=== PATIENT | female | born 2000 | race Caucasian/White ===

== ENCOUNTER 2024-02-13 06:34 | Inpatient (IN) | payer MEDICAID ==
[~2024-02-13] VITALS: Ht 162.6 cm; Wt 47.9 kg
[2024-02-13] MEDS ORDERED: loperamide 2mg capsule PO PRN (08:45)
[2024-02-13] MEDS ORDERED: mag hydrox/Alum hydrox/simeth 30ml oral suspension PO PRN (08:45)
[2024-02-13] MEDS ORDERED: magnesium hydroxide 30ml (MOM) UD suspension PO PRN (08:45)
[2024-02-13] MEDS ORDERED: acetaminophen 325mg tablet PO PRN ×2 (08:45)
[2024-02-13 12:05] VITALS: BP 118/83; PULSE 82; RESP 16; TEMP 97.3; O2SAT 98
[2024-02-13] MEDS ORDERED: HYDR-3927 PO (12:36)
[2024-02-13] MEDS ORDERED: SPIR50TA5 PO (12:36)
[2024-02-13] MEDS ORDERED: METR375C6 PO (12:36)
[2024-02-13] MEDS ORDERED: LAMO100T PO (12:36)
[2024-02-13] MEDS ORDERED: ISOT30CA PO (12:36)
[2024-02-13 15:58] VITALS: RESP 16; O2SAT 98
[2024-02-13] MEDS: hydrOXYzine 25 MG tablet PO SCH (17:00)
[2024-02-13 19:11] VITALS: RESP 16; O2SAT 99
[2024-02-13 19:29] VITALS: BP 116/80; PULSE 80; RESP 16; TEMP 98.2; O2SAT 99
[2024-02-14 07:00] VITALS: RESP 18; O2SAT 98
[2024-02-14] MEDS: lamoTRIgine 100mg tablet PO SCH (07:21)
[2024-02-14] MEDS: spironolactone 50 MG tablet PO SCH (07:21)
[2024-02-14 08:00] VITALS: BP 103/82; PULSE 80; RESP 18; TEMP 97.2; O2SAT 98
[2024-02-14] MEDS ORDERED: diphenhydrAMINE 25mg capsule PO PRN (10:10)
[2024-02-14] MEDS ORDERED: mag hydrox/Alum hydrox/simeth 30ml oral suspension PO PRN (10:10)
[2024-02-14] MEDS ORDERED: ondansetron/PF 4mg/2ml inj IV PRN (10:10)
[2024-02-14] MEDS ORDERED: diphenhydrAMINE 50 mg/ml inj IV PRN (10:10)
[2024-02-14] MEDS ORDERED: magnesium hydroxide 30ml (MOM) UD suspension PO PRN (10:10)
[2024-02-14] MEDS ORDERED: ondansetron 4mg rapidly disintigrating tab PO PRN (10:10)
[2024-02-14 12:36] LABS: APTT 28 SECONDS (22-32); PROTHROMBIN TIME 10.5 SECONDS (9.0-12.0)
[2024-02-14 12:38] LABS: CHOL/HDL RATIO 2.6 (0.00-4.99); CHOLESTEROL 176 MG/DL (0-200); HDL CHOLESTEROL 68 MG/DL (35-60); LDL CHOLESTEROL 87 MG/DL (50-100); TRIGLYCERIDES 142 MG/DL (20-135)
[2024-02-14 12:46] LABS: MAGNESIUM 2.3 MG/DL (1.5-2.4); PHOSPHORUS 5.1 MG/DL (2.3-4.5); PRO BRAIN NATRIURETIC PEPTIDE < 30 PG/ML (0-125)
[2024-02-14] MEDS: buPROPion SR 150mg tablet PO SCH (16:25)
[2024-02-14 19:00] VITALS: RESP 14; O2SAT 100
[2024-02-14 20:00] VITALS: BP 124/79; PULSE 97; RESP 14; TEMP 98.6; O2SAT 100
[2024-02-14] MEDS ORDERED: buPROPion SR 150mg tablet PO SCH (20:00)
[2024-02-14] MEDS: temazepam 15mg capsule PO PRN (21:01)
[2024-02-14] MEDS: docusate sod 100mg capsule PO SCH (21:02)
[2024-02-15 07:00] VITALS: RESP 16; O2SAT 98
[2024-02-15 08:00] VITALS: BP 110/87; PULSE 97; RESP 16; TEMP 98.3; O2SAT 98
[2024-02-15 15:17] LABS: BASOPHILS % (AUTO) 0.4 % (0-1); EOSINOPHILS # (AUTO) 0.3 X10'3 (0-0.9); EOSINOPHILS % (AUTO) 3.8 % (0-6); HEMATOCRIT 42.1 % (35.0-45.0); HEMOGLOBIN 14.5 g/dl (12.0-16.0); LYMPHOCYTES # (AUTO) 1.8 X10'3 (1.1-4.8); LYMPHOCYTES % (AUTO) 24.6 % (21-51); MEAN CORPUSCULAR HEMOGLOBIN 31.1 PG (27.0-31.0); MEAN CORPUSCULAR HGB CONC 34.4 g/dL (33.0-36.5); MEAN CORPUSCULAR VOLUME 90.5 FL (78-98); MEAN PLATELET VOLUME 7.9 FL (7.4-10.4); MONOCYTES # (AUTO) 0.5 X10'3 (0-0.9); NEUTROPHILS # (AUTO) 4.8 X10'3 (1.8-7.7); NEUTROPHILS % (AUTO) 64.2 % (42-75); PLATELET COUNT 326 X10'3 (140-440); RED BLOOD COUNT 4.65 X10'6 (4.20-5.60); RED CELL DISTRIBUTION WIDTH 13.4 % (11.5-14.5); WHITE BLOOD COUNT 7.5 X10'3 (4.5-11.0)
[2024-02-15 15:19] LABS: ALANINE AMINOTRANSFERASE 21 U/L (12-78); ALBUMIN 3.5 G/DL (3.4-5.0); ALBUMIN/GLOBULIN RATIO 0.8 (1.1-1.5); ALKALINE PHOSPHATASE 95 IU/L (46-116); ANION GAP 11 (8-16); ASPARTATE AMINO TRANSFERASE 13 U/L (10-37); BILIRUBIN,TOTAL 0.3 MG/DL (0.1-1.0); BLOOD UREA NITROGEN 15 MG/DL (7-18); BUN/CREATININE RATIO 17.9 (10.0-20.0); CALCIUM 9.2 MG/DL (8.5-10.1); CHLORIDE 101 MMOL/L (99-107); CREATININE 0.84 MG/DL (0.40-0.90); GLUCOSE 118 MG/DL (70-104); POTASSIUM 3.9 MMOL/L (3.5-5.1); SODIUM 136 MMOL/L (135-145); TOTAL CARBON DIOXIDE 24.1 MMOL/L (24-32); TOTAL PROTEIN 7.8 G/DL (6.4-8.2); eCRCL 79 ML/MIN; eGFR 85 ML/MIN
[2024-02-15 19:30] VITALS: RESP 16; O2SAT 97
[2024-02-15 20:01] VITALS: BP 125/88; PULSE 104; RESP 16; TEMP 98.6; O2SAT 97
[2024-02-15] MEDS: hydrOXYzine 25 MG tablet PO PRN (21:15)
[2024-02-16 07:00] VITALS: RESP 16; O2SAT 97
[2024-02-16 07:30] VITALS: BP 114/86; PULSE 116; RESP 17; TEMP 98.4; O2SAT 97
[2024-02-16 12:38] LABS: BASOPHILS % (AUTO) 0.4 % (0-1); EOSINOPHILS # (AUTO) 0.3 X10'3 (0-0.9); EOSINOPHILS % (AUTO) 3.8 % (0-6); HEMOGLOBIN 14.9 g/dl (12.0-16.0); LYMPHOCYTES # (AUTO) 1.7 X10'3 (1.1-4.8); LYMPHOCYTES % (AUTO) 23.8 % (21-51); MEAN CORPUSCULAR HEMOGLOBIN 30.3 PG (27.0-31.0); MEAN CORPUSCULAR HGB CONC 33.1 g/dL (33.0-36.5); MEAN CORPUSCULAR VOLUME 91.7 FL (78-98); MEAN PLATELET VOLUME 7.8 FL (7.4-10.4); MONOCYTES # (AUTO) 0.6 X10'3 (0-0.9); NEUTROPHILS # (AUTO) 4.4 X10'3 (1.8-7.7); PLATELET COUNT 336 X10'3 (140-440); RED BLOOD COUNT 4.91 X10'6 (4.20-5.60); RED CELL DISTRIBUTION WIDTH 13.5 % (11.5-14.5)
[2024-02-16 12:51] LABS: ALANINE AMINOTRANSFERASE 22 U/L (12-78); ALBUMIN 3.7 G/DL (3.4-5.0); ALBUMIN/GLOBULIN RATIO 0.9 (1.1-1.5); ALKALINE PHOSPHATASE 85 IU/L (46-116); ANION GAP 7 (8-16); ASPARTATE AMINO TRANSFERASE 17 U/L (10-37); BILIRUBIN,TOTAL 0.4 MG/DL (0.1-1.0); BLOOD UREA NITROGEN 12 MG/DL (7-18); BUN/CREATININE RATIO 18.8 (10.0-20.0); CHLORIDE 103 MMOL/L (99-107); CREATININE 0.64 MG/DL (0.40-0.90); GLUCOSE 87 MG/DL (70-104); SODIUM 137 MMOL/L (135-145); TOTAL CARBON DIOXIDE 27.5 MMOL/L (24-32); TOTAL PROTEIN 7.9 G/DL (6.4-8.2); eCRCL 104 ML/MIN; eGFR > 90 ML/MIN
[2024-02-16 19:39] VITALS: BP 125/86; PULSE 99; RESP 14; TEMP 98; O2SAT 99
[2024-02-16] MEDS: busPIRone 5mg tablet PO SCH (21:10)
[2024-02-16] MEDS: Melatonin 3mg tablet PO PRN (21:51)
[2024-02-17 07:00] VITALS: RESP 16; O2SAT 98
[2024-02-17 08:00] VITALS: BP 126/88; PULSE 111; RESP 16; TEMP 98.6; O2SAT 98
[2024-02-17 10:04] LABS: BASOPHILS % (AUTO) 0.5 % (0-1); EOSINOPHILS # (AUTO) 0.3 X10'3 (0-0.9); EOSINOPHILS % (AUTO) 3.7 % (0-6); HEMATOCRIT 46.3 % (35.0-45.0); HEMOGLOBIN 15.5 g/dl (12.0-16.0); LYMPHOCYTES # (AUTO) 1.9 X10'3 (1.1-4.8); MEAN CORPUSCULAR HEMOGLOBIN 30.6 PG (27.0-31.0); MEAN CORPUSCULAR HGB CONC 33.4 g/dL (33.0-36.5); MEAN CORPUSCULAR VOLUME 91.8 FL (78-98); MEAN PLATELET VOLUME 7.7 FL (7.4-10.4); MONOCYTES # (AUTO) 0.9 X10'3 (0-0.9); MONOCYTES % (AUTO) 11.7 % (2-12); NEUTROPHILS # (AUTO) 4.7 X10'3 (1.8-7.7); NEUTROPHILS % (AUTO) 60.1 % (42-75); PLATELET COUNT 344 X10'3 (140-440); RED BLOOD COUNT 5.04 X10'6 (4.20-5.60); RED CELL DISTRIBUTION WIDTH 13.7 % (11.5-14.5); WHITE BLOOD COUNT 7.9 X10'3 (4.5-11.0)
[2024-02-17 10:22] LABS: ALANINE AMINOTRANSFERASE 21 U/L (12-78); ALBUMIN 3.9 G/DL (3.4-5.0); ALBUMIN/GLOBULIN RATIO 0.9 (1.1-1.5); ALKALINE PHOSPHATASE 91 IU/L (46-116); ANION GAP 8 (8-16); ASPARTATE AMINO TRANSFERASE 18 U/L (10-37); BILIRUBIN,TOTAL 0.4 MG/DL (0.1-1.0); BLOOD UREA NITROGEN 10 MG/DL (7-18); BUN/CREATININE RATIO 15.2 (10.0-20.0); CALCIUM 9.4 MG/DL (8.5-10.1); CHLORIDE 104 MMOL/L (99-107); CREATININE 0.66 MG/DL (0.40-0.90); GLUCOSE 84 MG/DL (70-104); POTASSIUM 3.8 MMOL/L (3.5-5.1); SODIUM 137 MMOL/L (135-145); TOTAL CARBON DIOXIDE 24.9 MMOL/L (24-32); TOTAL PROTEIN 8.3 G/DL (6.4-8.2); eCRCL 101 ML/MIN; eGFR > 90 ML/MIN
[2024-02-17 19:00] VITALS: RESP 16; O2SAT 99
[2024-02-17 19:14] VITALS: BP 124/81; PULSE 90; RESP 16; TEMP 98.9; O2SAT 99
[2024-02-18 08:00] VITALS: BP 123/73; PULSE 90; RESP 16; TEMP 98.2; O2SAT 98
[2024-02-18 14:24] LABS: BASOPHILS % (AUTO) 0.5 % (0-1); EOSINOPHILS # (AUTO) 0.2 X10'3 (0-0.9); EOSINOPHILS % (AUTO) 2.9 % (0-6); HEMATOCRIT 43.8 % (35.0-45.0); HEMOGLOBIN 14.7 g/dl (12.0-16.0); LYMPHOCYTES # (AUTO) 2.1 X10'3 (1.1-4.8); LYMPHOCYTES % (AUTO) 26.7 % (21-51); MEAN CORPUSCULAR HEMOGLOBIN 30.8 PG (27.0-31.0); MEAN CORPUSCULAR HGB CONC 33.6 g/dL (33.0-36.5); MEAN CORPUSCULAR VOLUME 91.7 FL (78-98); MEAN PLATELET VOLUME 7.8 FL (7.4-10.4); MONOCYTES # (AUTO) 0.7 X10'3 (0-0.9); MONOCYTES % (AUTO) 8.7 % (2-12); NEUTROPHILS # (AUTO) 4.8 X10'3 (1.8-7.7); NEUTROPHILS % (AUTO) 61.2 % (42-75); PLATELET COUNT 323 X10'3 (140-440); RED BLOOD COUNT 4.78 X10'6 (4.20-5.60); RED CELL DISTRIBUTION WIDTH 13.9 % (11.5-14.5); WHITE BLOOD COUNT 7.9 X10'3 (4.5-11.0)
[2024-02-18 14:40] LABS: ALANINE AMINOTRANSFERASE 23 U/L (12-78); ALBUMIN 3.8 G/DL (3.4-5.0); ALBUMIN/GLOBULIN RATIO 0.9 (1.1-1.5); ALKALINE PHOSPHATASE 96 IU/L (46-116); ANION GAP 9 (8-16); ASPARTATE AMINO TRANSFERASE 16 U/L (10-37); BILIRUBIN,TOTAL 0.3 MG/DL (0.1-1.0); BLOOD UREA NITROGEN 10 MG/DL (7-18); BUN/CREATININE RATIO 11.1 (10.0-20.0); CALCIUM 8.9 MG/DL (8.5-10.1); CHLORIDE 105 MMOL/L (99-107); GLUCOSE 132 MG/DL (70-104); SODIUM 138 MMOL/L (135-145); TOTAL CARBON DIOXIDE 24.5 MMOL/L (24-32); TOTAL PROTEIN 7.9 G/DL (6.4-8.2); eCRCL 74 ML/MIN; eGFR 78 ML/MIN
[2024-02-18 19:00] VITALS: RESP 18; O2SAT 98
[2024-02-18 20:00] VITALS: BP 116/81; PULSE 104; RESP 18; TEMP 97.8; O2SAT 98
[2024-02-19 07:00] VITALS: RESP 15; O2SAT 100
[2024-02-19 07:30] VITALS: BP 114/79; PULSE 90; RESP 15; TEMP 97.8; O2SAT 100
[2024-02-19 08:10] LABS: BASOPHILS % (AUTO) 0.7 % (0-1); EOSINOPHILS # (AUTO) 0.2 X10'3 (0-0.9); HEMATOCRIT 41.6 % (35.0-45.0); LYMPHOCYTES # (AUTO) 2.2 X10'3 (1.1-4.8); LYMPHOCYTES % (AUTO) 36.1 % (21-51); MEAN CORPUSCULAR HGB CONC 33.7 g/dL (33.0-36.5); MEAN CORPUSCULAR VOLUME 91.9 FL (78-98); MEAN PLATELET VOLUME 7.9 FL (7.4-10.4); MONOCYTES # (AUTO) 0.6 X10'3 (0-0.9); MONOCYTES % (AUTO) 9.9 % (2-12); NEUTROPHILS % (AUTO) 49.3 % (42-75); PLATELET COUNT 289 X10'3 (140-440); RED BLOOD COUNT 4.53 X10'6 (4.20-5.60); RED CELL DISTRIBUTION WIDTH 13.6 % (11.5-14.5); WHITE BLOOD COUNT 6.2 X10'3 (4.5-11.0)
[2024-02-19 08:15] LABS: ALANINE AMINOTRANSFERASE 26 U/L (12-78); ALBUMIN 3.5 G/DL (3.4-5.0); ALBUMIN/GLOBULIN RATIO 0.9 (1.1-1.5); ALKALINE PHOSPHATASE 74 IU/L (46-116); ANION GAP 7 (8-16); ASPARTATE AMINO TRANSFERASE 20 U/L (10-37); BILIRUBIN,TOTAL 0.4 MG/DL (0.1-1.0); BLOOD UREA NITROGEN 12 MG/DL (7-18); BUN/CREATININE RATIO 16.2 (10.0-20.0); CALCIUM 8.4 MG/DL (8.5-10.1); CHLORIDE 105 MMOL/L (99-107); CREATININE 0.74 MG/DL (0.40-0.90); GLUCOSE 90 MG/DL (70-104); POTASSIUM 3.8 MMOL/L (3.5-5.1); SODIUM 139 MMOL/L (135-145); TOTAL PROTEIN 7.3 G/DL (6.4-8.2); eCRCL 90 ML/MIN; eGFR > 90 ML/MIN
[2024-02-19] MEDS ORDERED: HYDR-3686 PO (13:03)
[2024-02-19] MEDS ORDERED: LAMO100T PO (13:03)
[2024-02-19] MEDS ORDERED: BUPR-72 PO (13:03)
[2024-02-19] MEDS ORDERED: BUSP5TAB26 PO (13:03)
[2024-02-19] MEDS ORDERED: METR-349 PO (13:03)
[2024-02-19] MEDS ORDERED: MELA3TAB39 PO (13:03)
== END 2024-02-19 18:17 | disposition home or self-care (01) | DRG 753 ==
LOC: ADULT MH 10:14 → UNDOADMIN 11:26
PROVIDERS: ADMIT Psychiatry & Neurology Psychiatry; ATTEND Psychiatry & Neurology Psychiatry
PROC: GZHZZZZ Group Psychotherapy (ICD-10-PCS; principal; 2024-02-14)
PROC: GZ56ZZZ Individual Psychotherapy, Supportive (ICD-10-PCS; 2024-02-14)
DX: F31.9 Bipolar disorder, unspecified (principal); R45.851 Suicidal ideations; F41.9 Anxiety disorder, unspecified; F43.10 Post-traumatic stress disorder, unspecified; F60.9 Personality disorder, unspecified; N76.0 Acute vaginitis; Z91.51 Personal history of suicidal behavior; T43.592A Poisoning by other antipsychotics and neuroleptics, intentional self-harm, initial encounter
CPT/HCPCS: 36415; 80053; 80061; 83036; 83735; 83880; 84100; 85025; 85610; 85730; 87081; 99285; Q0177

== ENCOUNTER 2024-10-12 16:00 | Outpatient (CLI) | payer MEDICAID ==
[~2024-10-12] VITALS: Ht 162.6 cm; Wt 49.0 kg
[~2024-10-12 16:00] MED LIST: BUPR-72 PO; BUSP5TAB26 PO; HYDR-3686 PO; ISOT30CA PO; LAMO100T PO; MELA3TAB39 PO; METR-349 PO; SPIR50TA5 PO
[2024-10-12] MEDS: albuterol 2.5 MG/3 ML nebule NEB ONE (16:27)
[2024-10-12 16:28] VITALS: PULSE 105; RESP 16; O2SAT 98
[2024-10-12 16:40] VITALS: PULSE 109; RESP 16
== END 2024-10-12 23:59 | disposition home or self-care (01) ==
LOC: RT 16:00
PROVIDERS: ATTEND Student in an Organized Health Care Education/Training Program
DX: J44.9 Chronic obstructive pulmonary disease, unspecified (principal); R06.02 Shortness of breath
CPT/HCPCS: 94060; 94760

== ENCOUNTER 2025-01-11 00:13 | Emergency (ER) | payer MEDICAID ==
[~2025-01-11] VITALS: Ht 162.6 cm; Wt 47.5 kg
[2025-01-11] MEDS ORDERED: GUAN2TAB19 PO (00:48)
[2025-01-11] MEDS ORDERED: BUDE10.22 INH (00:48)
[2025-01-11] MEDS ORDERED: BUSP10TA3 PO (00:49)
[2025-01-11] MEDS ORDERED: BUPR150T8 PO (01:06)
[2025-01-11] MEDS ORDERED: LAMO150T6 PO (01:06)
[2025-01-11] MEDS ORDERED: LAMO100T65 PO (01:08)
[2025-01-11 01:19] LABS: BILIRUBIN,URINE NEGATIVE (Neg); CLARITY,URINE CLEAR (Clear); COLOR,URINE YELLOW (Yellow); GLUCOSE, URINE NEGATIVE (Neg); KETONES,URINE NEGATIVE (Neg); LEUKOCYTE ESTERASE ,URINE NEGATIVE (Neg); NITRITES, URINE NEGATIVE (Neg); OCCULT BLOOD,URINE NEGATIVE (Neg); PROTEIN,URINE NEGATIVE (Neg); UROBILINOGEN,URINE 0.2 E.U/dL (0.2-1.0)
[2025-01-11 01:20] LABS: BASOPHILS % (AUTO) 0.5 % (0-1); EOSINOPHILS # (AUTO) 0.1 X10'3 (0-0.9); EOSINOPHILS % (AUTO) 1.6 % (0-6); HEMOGLOBIN 15.2 g/dl (12.0-16.0); LYMPHOCYTES # (AUTO) 2.6 X10'3 (1.1-4.8); LYMPHOCYTES % (AUTO) 43.1 % (21-51); MEAN CORPUSCULAR HGB CONC 35.3 g/dL (33.0-36.5); MEAN CORPUSCULAR VOLUME 90.7 FL (78-98); MEAN PLATELET VOLUME 7.3 FL (7.4-10.4); MONOCYTES # (AUTO) 0.7 X10'3 (0-0.9); MONOCYTES % (AUTO) 10.7 % (2-12); NEUTROPHILS # (AUTO) 2.7 X10'3 (1.8-7.7); NEUTROPHILS % (AUTO) 44.1 % (42-75); PLATELET COUNT 289 X10'3 (140-440); RED BLOOD COUNT 4.73 X10'6 (4.20-5.60); RED CELL DISTRIBUTION WIDTH 12.1 % (11.5-14.5); WHITE BLOOD COUNT 6.1 X10'3 (4.5-11.0)
[2025-01-11 01:20] LABS: UA COLLECTION TYPE CLN CATCH MIDSTREAM
[2025-01-11 01:23] LABS: URINE HCG NEGATIVE (NEG)
[2025-01-11 01:33] LABS: ALANINE AMINOTRANSFERASE 17 U/L (12-78); ALBUMIN/GLOBULIN RATIO 1.1 (1.1-1.5); ALKALINE PHOSPHATASE 99 IU/L (46-116); ANION GAP 9 (8-16); ASPARTATE AMINO TRANSFERASE 18 U/L (10-37); BILIRUBIN,TOTAL 0.3 MG/DL (0.1-1.0); BLOOD UREA NITROGEN 8 MG/DL (7-18); CALCIUM 8.8 MG/DL (8.5-10.1); CHLORIDE 104 MMOL/L (99-107); CREATININE 0.89 MG/DL (0.40-0.90); GLUCOSE 99 MG/DL (70-104); POTASSIUM 3.5 MMOL/L (3.5-5.1); SODIUM 138 MMOL/L (135-145); TOTAL CARBON DIOXIDE 24.8 MMOL/L (24-32); TOTAL PROTEIN 7.5 G/DL (6.4-8.2); eCRCL 74 ML/MIN; eGFR 79 ML/MIN
[2025-01-11 01:37] LABS: URINE AMPHETAMINE SCREEN NEGATIVE (Neg); URINE BARBITUATE SCREEN NEGATIVE (Neg); URINE BENZODIAZEPINES SCREEN NEGATIVE (Neg); URINE CANNABINOID SCREEN NEGATIVE (Neg); URINE COCAINE SCREEN NEGATIVE (Neg); URINE METHADONE SCREEN NEGATIVE (Neg); URINE OPIATE SCREEN NEGATIVE (Neg); URINE PHENCYCLIDINE SCREEN NEGATIVE (Neg)
[2025-01-11 01:42] LABS: ETHANOL < 10 MG/DL (<10); SALICYLATE 1.5 MG/DL (4.0-20.0); THYROID STIMULATING HORMONE 1.29 ulU/ml (0.34-4.50)
[2025-01-11 01:49] LABS: ACETAMINOPHEN < 2.0 UG/ML (10-30)
[2025-01-11] MEDS: Melatonin 3mg tablet PO ONE (04:56)
[2025-01-11 08:36] VITALS: BP 107/78; PULSE 86; RESP 16; TEMP 98.7; O2SAT 99
[2025-01-11] MEDS: lamoTRIgine 100mg tablet PO SCH (08:38)
[2025-01-11] MEDS: guanFACINE 1 mg tablet PO SCH (08:38)
[2025-01-11] MEDS: buPROPion SR 150mg tablet PO SCH (08:38)
== END 2025-01-11 12:25 ==
LOC: ER 00:15
DX: R45.851 Suicidal ideations (principal); Z20.822 Contact with and (suspected) exposure to COVID-19
CPT/HCPCS: 36415; 80053; 80305; 80320; 80329; 81003; 81025; 84443; 85025; 87811; 99285